=== PATIENT | female | born 1990 | race Caucasian/White ===

== ENCOUNTER 2024-01-30 08:25 | Outpatient (RCR) | payer MEDICAID | END 2024-02-08 | disposition home or self-care (01) | LOC: WSST | DX: R13.10 Dysphagia, unspecified (principal) ==

== ENCOUNTER 2024-02-19 13:00 | Outpatient (RCR) | payer MEDICAID | END 2024-03-01 10:58 | disposition still patient (30) | LOC: WSST 13:00 | DX: R13.12 Dysphagia, oropharyngeal phase (principal); Z93.1 Gastrostomy status ==